=== PATIENT | female | born 1980 | race Caucasian/White ===

== ENCOUNTER 2019-11-30 21:15 | Inpatient (IN) | payer BC, OTHER ==
[2019-11-30] MEDS ORDERED: SODIUM CHLORIDE 1,000 ML IV STA (22:58)
[2019-11-30] MEDS ORDERED: morphine CARPU-JECT 4 MG/1 ML DISP.SYRIN IVPUSH ONE (22:58)
[2019-11-30] MEDS ORDERED: ONDANSETRON 4 MG/2 ML VIAL IVPB ONE (22:58)
--- NOTE | 2019-11-30 23:06 | PDOC ---
History of Present Illness - General Chief Complaint: Cold Symptoms Stated Complaint: ABD PAIN/VOMITING Time Seen by Provider: 11/30/19 22:28 History Source: Patient Exam Limitations: No Limitations - History of Present Illness Travel History: No Initial Comments: 11/30/19 23:02 HISTORY OF PRESENT ILLNESS: 39-year-old woman past medical history of uterine fibroids s/p remote hysterectomy presents emergency department for evaluation of epigastric pain over the past 24 hours after eating steak for dinner on 11/29. Patient reports the pain is been constant since that time but is unable to describe the pain. She reports the pain is "very bad." She reports feeling some nausea with occasional episodes of nonbilious nonbloody vomiting. Patient was seen by her primary doctor today who told her to drink Gatorade and she would improve. Patient reports her pain is unimproved despite increased fluid intake. She denies anybody who ate the steak feeling sick. Patient denies any alcohol intake. No recent travel or sick contacts. PAST MEDICAL HISTORY: See HPI SURGICAL HISTORY: See HPI ALLERGIES: No known drug allergies REVIEW OF SYSTEMS General/Constitutional: Denies fever or chills. Denies weakness, weight change. HEENT: Denies change in vision. Denies ear pain or discharge. Denies sore throat. Cardiovascular: Denies chest pain or shortness of breath. Respiratory: Denies cough, wheezing, or hemoptysis. Gastrointestinal: See HPI Genitourinary: Denies dysuria, frequency, or change in urination. Musculoskeletal: Denies joint or muscle swelling or pain. Denies neck or back pain. Skin and breasts: Denies rash or easy bruising. Neurologic: Denies headache, vertigo, loss of consciousness, or loss of sensation. Psychiatric: Denies depression or anxiety. Endocrine: Denies increased thirst. Denies abnormal weight change. Hematologic/Lymphatic: Denies anemia, easy bleeding, or history of blood clots. Allergic/Immunologic: Denies hives or skin allergy. Denies latex allergy. PHYSICAL EXAM General Appearance: Well-appearing, appropriately dressed. No apparent distress , no intoxication. Respiratory/Chest: Lungs CTAB. No shortness of breath, chest tenderness, respiratory distress, accessory muscle use. No crackles, rales, rhonchi, stridor , wheezing, dullness Cardiovascular: RRR. S1, S2. No JVD, murmur, bradycardia, tachycardia. Vascular Pulses: Dorsalis-Pedis (R): 2+, Dorsalis-Pedis (L): 2+ Gastrointestinal/Abdominal: Normal bowel sounds. Abdomen soft, non-distended. Right upper quadrant and epigastric tenderness present with guarding. Positive Johns's sign. No organomegaly, pulsatile mass, hernia, hepatomegaly, splenomegaly. Musculoskeletal/Extremities: Normal inspection. FROM of all extremities, normal capillary refill. Pelvis Stable. No CVA tenderness. No tenderness to extremities, pedal edema, swelling, erythema or deformity. 12/01/19 00:50 Past History - Past Medical History Allergies/Adverse Reactions: Allergies Allergy/AdvReac Type Severity Reaction Status Date / Time No Known Allergies Allergy Verified 02/07/15 12:47 Home Medications: Ambulatory Orders Amox-Tr/K Cl [Augmentin - 875Mg Tablet] 1 tab PO BID #8 tablet 12/04/19 Docusate Sodium [Colace -] 100 mg PO TID capsule 12/04/19 Ketorolac Tromethamine [Toradol] 10 mg PO Q6H #20 tablet 12/04/19 - Psycho Social/Smoking Cessation Hx Smoking History: Never smoked Have you smoked in the past 12 months: No Information on smoking cessation initiated: No Hx Alcohol Use: Yes Drug/Substance Use Hx: No Substance Use Type: None *Physical Exam - Vital Signs Last Vital Signs Temp Pulse Resp BP Pulse Ox 98.3 F 83 20 119/66 99 11/30/19 22:13 11/30/19 22:13 11/30/19 22:13 11/30/19 22:13 11/30/19 22:13 ED Treatment Course - LABORATORY CBC & Chemistry Diagram: 12/04/19 13:45 12/04/19 13:45 - RADIOLOGY Radiology Studies Ordered: Category Date Time Status GALLBLADDER US [US] Stat Ultrasound 11/30/19 22:59 Ordered Medical Decision Making - Medical Decision Making 11/30/19 23:06 A/P: 39-year-old woman with epigastric and right upper quadrant pain starting yesterday after eating dinner Epigastric and right upper quadrant tenderness present with guarding Remainder of abdominal exam is benign Lungs clear to auscultation bilaterally RRR. No murmur, rub or gallop present. Differential diagnosis includes but is not limited to-gastritis, gastroenteritis , pancreatitis, cholecystitis, choledocholithiasis, ACS, pneumonia Labs including lipase and cardiac profile Urinalysis Chest x-ray Gallbladder ultrasound Normal saline 1 L IV bolus Zofran 8 mg IV push Morphine 4 mg IV push Reassess 12/01/19 00:59 Ultrasound is read by imaging on-call: Gallbladder is full of sludge and probably small stones. Wall appears mildly thick. Consider cholecystitis. No biliary dilatation is seen. Liver appears heterogeneous. Right kidney shows no hydronephrosis. Portal vein shows unremarkable venous waveform with hepatopetal flow. Patient has positive Johns sign gallstones and thickened gallbladder wall high likelihood of cholecystitis. Admit the patient to [facility] for surgical consultation in the morning. Type and screen has been ordered Ceftriaxone 1 g IV ordered N.p.o. 12/01/19 01:09 Case has been discussed with Dr. Jones of the hospitalist service Who accepts patient for admission under Dr. Queen. Discharge - Discharge Information Problems reviewed: Yes Clinical Impression/Diagnosis: Cholecystitis, acute Condition: Good Disposition: HOME - Admission Yes - Follow up/Referral - Patient Discharge Instructions - Post Discharge Activity
[2019-11-30] MEDS ORDERED: ONDANSETRON 4 MG/2 ML VIAL ONE (23:19)
[2019-11-30] MEDS ORDERED: morphine SULFATE 4 MG/ML VIAL ONE (23:19)
[2019-11-30 23:41] LABS: BASO % 0.6 % (0-2.0); HEMATOCRIT 40.8 % (32.4-45.2); HEMOGLOBIN 13.6 GM/dL (10.7-15.3); LYMPH % 5.8 % (8-40); MCH 28.2 pg (25.7-33.7); MCHC 33.2 g/dl (32.0-36.0); MEAN CELL VOLUME 84.8 fl (80-96); MEAN PLT VOLUME 9.4 fl (7.5-11.1); MONO % 7.6 % (3.8-10.2); PLATELET COUNT 312 K/MM3 (134-434); RBC 4.81 M/mm3 (3.60-5.2); RDW 13.2 % (11.6-15.6); WHITE BLOOD COUNT 13.3 K/mm3 (4.0-10.0)
[2019-12-01 00:23] LABS: ALBUMIN 3.8 g/dl (3.4-5.0); ALK PHOS 80 U/L (45-117); ANION GAP 7 MMOL/L (8-16); BILIRUBIN,TOTAL 0.6 mg/dL (0.2-1); BLOOD UREA NITROGEN 8.6 mg/dL (7-18); CALCIUM 9.2 mg/dL (8.5-10.1); CHLORIDE 101 mmol/L (98-107); CO2 28 mmol/L (21-32); CREATININE 0.8 mg/dL (0.55-1.3); GLUCOSE,RANDOM 168 mg/dL (74-106); POTASSIUM 4.1 mmol/L (3.5-5.1); SGOT/AST 9 U/L (15-37); SGPT/ALT 16 U/L (13-61); SODIUM 135 mmol/L (136-145); TOT PROT 7.8 g/dl (6.4-8.2)
[2019-12-01] MEDS ORDERED: CEFTRIAXONE 1 GM in DEXTROSE 5%-WATER - 100 ML IVPB ONE (00:56)
[2019-12-01] MEDS ORDERED: SODIUM CHLORIDE 1,000 ML IV SCH (01:00)
[2019-12-01] MEDS ORDERED: morphine CARPU-JECT 4 MG/1 ML DISP.SYRIN IVPUSH ONE (01:04)
[2019-12-01] MEDS ORDERED: morphine SULFATE 4 MG/ML VIAL ONE ×2 (01:34→05:47)
--- NOTE | 2019-12-01 01:48 | HP ---
CHIEF COMPLAINT: Abdominal Pain PCP: [facility] HISTORY OF PRESENT ILLNESS: Patient is a 39 y/o F with no significant past medical history who presented to [facility] due to severe abdominal pain. Patient endorses that her pain commenced Wednesday evening while she was eating a steak. Approximately 20 minutes after eating her food, she began to experience her abdominal pain. Pain is constant, 10/10 in pain severity, and more prominent in her right upper quadrant. Patient states she has vomited over 10 times since the onset of her pain; vomitus is described as NBNB. Patient endorses she has never experienced this type of pain before. Patient did not take any OTC medications for her pain. morning, patient went to see her primary care doctor who advised her to drink Gatorade and sent her home. After pain did not remit, patient came to our emergency department. PastSurgHx: Hysterectomy FH- Father DM Social- Denies T/A/D NKDA ER course was notable for: (1) Abdominal ultrasound: Gallbladder is full of sludge and probably small stones. Wall appears thick. Consider cholecystitis. No billiary dilation seen. (2) 1 gm Ceftriaxone (3) HOME MEDICATIONS: Home Medications Medication Instructions Recorded Naproxen [Naprosyn -] 500 mg PO BID PRN #14 tablet 02/07/15 REVIEW OF SYSTEMS CONSTITUTIONAL: PRESENT: Fever HEENT: Absent: rhinorrhea, nasal congestion, throat pain, throat swelling, difficulty swallowing, mouth swelling, ear pain, eye pain, visual changes CARDIOVASCULAR: Absent: chest pain, syncope, palpitations, irregular heart rate, lightheadedness , peripheral edema RESPIRATORY: Absent: cough, shortness of breath, dyspnea with exertion, orthopnea, wheezing, stridor, hemoptysis GASTROINTESTINAL: PRESENT abdominal pain, nausea, vomiting GENITOURINARY: Absent: dysuria, frequency, urgency, hesitancy, hematuria, flank pain, genital pain MUSCULOSKELETAL: Absent: myalgia, arthralgia, joint swelling, back pain, neck pain SKIN: Absent: rash, itching, pallor HEMATOLOGIC/IMMUNOLOGIC: Absent: easy bleeding, easy bruising, lymphadenopathy, frequent infections ENDOCRINE: Absent: unexplained weight gain, unexplained weight loss, heat intolerance, cold intolerance NEUROLOGIC: Absent: headache, focal weakness or paresthesias, dizziness, unsteady gait, seizure, mental status changes, bladder or bowel incontinence PSYCHIATRIC: Absent: anxiety, depression, suicidal or homicidal ideation, hallucinations. PHYSICAL EXAMINATION Vital Signs - 24 hr 11/30/19 11/30/19 22:13 23:59 Temperature 98.3 F Pulse Rate 83 Pulse Rate [ 72 Apical] Respiratory 20 18 Rate Blood Pressure 119/66 Blood Pressure 123/78 [Left Arm] O2 Sat by Pulse 99 100 Oximetry (%) GENERAL: Atraumatic/Normocephlic HEAD: AT/NC EYES: EOMI Sclera Clear EARS, NOSE, THROAT: MMM NECK: Supple LUNGS: CTAB HEART: RRR S1S2 ABDOMEN: +++ Johns's sign MUSCULOSKELETAL: FROM LOWER EXTREMITIES: No significant edema NEUROLOGICAL: Cranial nerves II-XII intact. Normal speech. PSYCHIATRIC: Cooperative. Good eye contact. Appropriate mood and affect. SKIN: No rashes or lesions appreciated Laboratory Results - last 24 hr 11/30/19 11/30/19 11/30/19 23:34 23:34 23:34 WBC 13.3 H RBC 4.81 Hgb 13.6 Hct 40.8 MCV 84.8 MCH 28.2 MCHC 33.2 RDW 13.2 Plt Count 312 MPV 9.4 Absolute Neuts (auto) 11.4 H Neutrophils % 86.0 H Lymphocytes % 5.8 L Monocytes % 7.6 Eosinophils % 0.0 Basophils % 0.6 Nucleated RBC % 0 Sodium 135 L Potassium 4.1 Chloride 101 Carbon Dioxide 28 Anion Gap 7 L BUN 8.6 Creatinine 0.8 Est GFR (CKD-EPI)AfAm 106.13 Est GFR (CKD-EPI)NonAf 91.57 Random Glucose 168 H Calcium 9.2 Total Bilirubin 0.6 AST 9 L ALT 16 Alkaline Phosphatase 80 Creatine Kinase 102 Troponin I < 0.02 Total Protein 7.8 Albumin 3.8 Lipase 62 L ASSESSMENT/PLAN: Patient is a 39 y/o F with no significant past medical history who presented to [facility] due to severe abdominal pain. # Cholecystitis - Abdomen Ultrasound : Gallbladder is full of sludge and probably small stones. Wall appears thick. Consider Cholecystitis. No billiary dilation seen. - ++Johns's sign -Received 1 gm Ceftriaxone in Emergency Department -Surgery on board. Likely Cholecystectomy in am. -PTT/PT Type and screen -Morphine 4 mg Q4H PRN -Ofirmev PRN with associated Pain Scale -Zofran PRN for Nausea -EKG preoperatively -NPO #FEN -NS@125cc/hr -Monitor Electrolytes -NPO #DVT ppx: -SCDs #Dispo: -Med-Surg - Visit type - Emergency Visit Emergency Visit: Yes ED Registration Date: 12/01/19 Care time: The patient presented to the Emergency Department on the above date and was hospitalized for further evaluation of their emergent condition. - New Patient This patient is new to me today: Yes Date on this admission: 12/01/19 - Critical Care Critical Care patient: No ATTENDING PHYSICIAN STATEMENT I saw and evaluated the patient. I reviewed the resident's note and discussed the case with the resident. I agree with the resident's findings and plan as documented. SUBJECTIVE: OBJECTIVE: ASSESSMENT AND PLAN:
--- NOTE | 2019-12-01 02:23 | PN ---
Teaching Attending Note Name of Resident: Shabbir Jones ATTENDING PHYSICIAN STATEMENT I saw and evaluated the patient. I reviewed the resident's note and discussed the case with the resident. I agree with the resident's findings and plan as documented. SUBJECTIVE: 39-year-old woman w/ uterine fibroids s/p remote hysterectomy presents with epigastric pain over the past 24 hours after eating steak on 11/29/2019. Patient reports that the pain is been constant since that time associate with some nausea and nonbilious nonbloody vomiting. Patient seen at [facility] who discharged her, patient reports pain is unimproved despite increased fluid intake. OBJECTIVE: Last Vital Signs Temp Pulse Resp BP Pulse Ox 98.3 F 72 18 123/78 100 11/30/19 22:13 11/30/19 23:59 11/30/19 23:59 11/30/19 23:59 11/30/19 23:59 GENERAL: Well developed, well nourished. Awake and alert. No acute distress. HEENT: Normocephalic, atraumatic. PERRLA, EOMI. No conjunctival pallor. Sclera are non- icteric. Moist mucous membranes. Oropharynx is clear. NECK: Supple. Full ROM. No JVD. Carotid pulses 2+ and symmetric, without bruits. No thyromegaly. No lymphadenopathy. CARDIOVASCULAR: Regular rate and rhythm. No murmurs, rubs, or gallops. Distal pulses are 2+ and symmetric. PULMONARY: No evidence of respiratory distress. Lungs clear to auscultation bilaterally. No wheezing, rales or rhonchi. ABDOMINAL: Soft. Right upper quadrant tenderness, positive Johns sign Non-distended. No rebound or guarding. MUSCULOSKELETAL Normal range of motion at all joints. No bony deformities or tenderness. No CVA tenderness. EXTREMITIES: No cyanosis. No clubbing. No edema. No calf tenderness. SKIN: Warm and dry. Normal capillary refill. No rashes. No jaundice. PSYCHIATRIC: Cooperative. Good eye contact. Appropriate mood and affect. Abnormal Lab Results 11/30/19 11/30/19 11/30/19 23:34 23:34 23:34 WBC 13.3 H Absolute Neuts (auto) 11.4 H Neutrophils % 86.0 H Lymphocytes % 5.8 L Sodium 135 L Anion Gap 7 L Random Glucose 168 H AST 9 L Lipase 62 L Imaging studies reviewed ASSESSMENT AND PLAN: 39-year-old woman with acute cholecystitis, leukocytosis status post ceftriaxone in the ER. No signs of systemic infection at this time. Borderline hyponatremia. Admit to MedSurg PT/PTT/type and screen N.p.o. BGM's every 6 hours Pain control with morphine IV IV fluid hydration EKG preoperatively Zofran IV as needed if nausea or vomiting Urine test Surgery consultDrDeepika Oswald DVT prophylaxis with SCDs
[2019-12-01 02:28] LABS: EPI CELLS 28.6 /HPF (0-5/HPF); HYALINE CASTS 29 /lpf (0-8); URINE APPEARANCE CLOUDY; URINE BACTERIA 1304.1 /hpf (NEGATIVE); URINE BILIRUBIN NEGATIVE (NEGATIVE); URINE COLOR YELLOW; URINE GLUCOSE (UA) TRACE (NEGATIVE); URINE KETONE 3+ (NEGATIVE); URINE LEUK ESTERASE NEGATIVE (NEGATIVE); URINE NITRITE NEGATIVE (NEGATIVE); URINE PROTEIN 1+ (NEGATIVE); URINE UROBILINOGEN 0.2 mg/dL (0.2-1.0)
[2019-12-01] MEDS ORDERED: morphine CARPU-JECT 4 MG/1 ML DISP.SYRIN IVPUSH PRN ×2 (03:52→08:00)
[2019-12-01] MEDS ORDERED: ACETAMINOPHEN 1000 MG/100 ML VIAL (NON FORMULARY) IVPB PRN (03:53)
[2019-12-01 04:02] LABS: URINE RBC 10.5 /hpf (0-4); URINE WBC 12.1 /hpf (0-5)
[2019-12-01 06:43] LABS: BASO % 0.1 % (0-2.0); HEMATOCRIT 37.8 % (32.4-45.2); HEMOGLOBIN 12.7 GM/dL (10.7-15.3); LYMPH % 4.8 % (8-40); MCH 28.4 pg (25.7-33.7); MCHC 33.6 g/dl (32.0-36.0); MEAN CELL VOLUME 84.5 fl (80-96); MONO % 11.5 % (3.8-10.2); NEUT % 83.6 % (42.8-82.8); PLATELET COUNT 293 K/MM3 (134-434); RBC 4.48 M/mm3 (3.60-5.2); RDW 13.2 % (11.6-15.6); WHITE BLOOD COUNT 19.7 K/mm3 (4.0-10.0)
[2019-12-01 06:51] LABS: INR 1.3 (0.83-1.09); PROTHROMBIN TIME (PATIENT) 15.4 SEC (9.7-13.0)
[2019-12-01 06:53] LABS: ACTIVATED PTT 27.8 SECONDS (25.2-36.5)
[2019-12-01 07:09] LABS: ALBUMIN 3.1 g/dl (3.4-5.0); ALK PHOS 65 U/L (45-117); ANION GAP 7 MMOL/L (8-16); BILIRUBIN,TOTAL 0.5 mg/dL (0.2-1); BLOOD UREA NITROGEN 7.7 mg/dL (7-18); CALCIUM 8.1 mg/dL (8.5-10.1); CHLORIDE 105 mmol/L (98-107); CO2 25 mmol/L (21-32); CREATININE 0.7 mg/dL (0.55-1.3); GLUCOSE,RANDOM 145 mg/dL (74-106); MAGNESIUM 1.9 mg/dL (1.8-2.4); PHOSPHOROUS 2.5 mg/dL (2.5-4.9); POTASSIUM 3.6 mmol/L (3.5-5.1); SGOT/AST 15 U/L (15-37); SGPT/ALT 16 U/L (13-61); SODIUM 137 mmol/L (136-145); TOT PROT 6.4 g/dl (6.4-8.2)
[2019-12-01] MEDS ORDERED: morphine SULFATE 4 MG/ML VIAL IVPUSH PRN (08:00)
[2019-12-01] MEDS ORDERED: ACETAMINOPHEN INJECTION 100 ML IVPB ONE ×2 (09:02→16:42)
--- NOTE | 2019-12-01 09:08 | CONSULT ---
- Consultation REQUESTING PROVIDER: CONSULT REQUEST: We have been asked to surgically evaluate this patient for cholecystitis PCP:April Lucio NP HISTORY OF PRESENT ILLNESS: Patient is a 39 y/o F with no significant past medical history who presented to [facility] due to severe abdominal pain x 1 day. Patient states the pain started Wednesday evening approximately 20 minutes after eating her food, she began to experience her abdominal pain. Pain is constant, 10/10 in pain severity, and more prominent in her right upper quadrant. Patient states she has vomited yellow) over 10 times since the onset of her pain. Patient endorses she has never experienced this type of pain before. Patient did not take any OTC medications for her pain. morning, patient went to see her primary care doctor who advised her to drink Gatorade and sent her home. As the pain continued, she came to our emergency department. PastSurgHx: Hysterectomy FH- Father DM Social- Denies T/A/D NKDA HOME MEDICATIONS: Home Medications Medication Instructions Recorded Naproxen [Naprosyn -] 500 mg PO BID PRN #14 tablet 02/07/15 REVIEW OF SYSTEMS CONSTITUTIONAL: PRESENT: Fever HEENT: Absent: rhinorrhea, nasal congestion, throat pain, throat swelling, CARDIOVASCULAR: Absent: chest pain, syncope, s, peripheral edema RESPIRATORY: Absent: cough, shortness of breath, dyspnea with exertion, GASTROINTESTINAL: PRESENT abdominal pain, nausea, vomiting GENITOURINARY: Absent: dysuria, frequency, urgency, hesitancy, MUSCULOSKELETAL: Absent: myalgia, arthralgia, joint swelling, SKIN: Absent: rash, itching, pallor HEMATOLOGIC/IMMUNOLOGIC: Absent: easy bleeding, easy bruising, lymphadenopathy, frequent infections ENDOCRINE: Absent: unexplained weight gain, unexplained weight loss, heat intolerance, cold intolerance NEUROLOGIC: Absent: headache, focal weakness or paresthesias, dizziness, unsteady gait, PSYCHIATRIC: Absent: anxiety, depression, suicidal or homicidal ideation, hallucinations. PHYSICAL EXAMINATION Last Vital Signs Temp Pulse Resp BP Pulse Ox 98.3 F 80 18 118/61 96 11/30/19 22:13 12/01/19 05:32 12/01/19 08:41 12/01/19 05:32 12/01/19 05:32 GENERAL: A&Ox3, mild distress 2/2 pain HEAD: AT/NC EYES: Sclera Clear LUNGS: Unlabored resp on RA HEART: RRR S1S2 ABDOMEN:obese with no rashes or lesions. Diffusely TTP throughout with increase TTP over RUQ, no masses palpated, + guarding. MUSCULOSKELETAL: FROM LOWER EXTREMITIES: No significant edema NEUROLOGICAL: Cranial nerves II-XII intact. Normal speech. PSYCHIATRIC: Cooperative. Good eye contact. Appropriate mood and affect. SKIN: No rashes or lesions appreciated Lab Results WBC 19.7 K/mm3 (4.0-10.0) H 12/01/19 05:30 RBC 4.48 M/mm3 (3.60-5.2) 12/01/19 05:30 Hgb 12.7 GM/dL (10.7-15.3) 12/01/19 05:30 Hct 37.8 % (32.4-45.2) 12/01/19 05:30 MCV 84.5 fl (80-96) 12/01/19 05:30 MCHC 33.6 g/dl (32.0-36.0) 12/01/19 05:30 RDW 13.2 % (11.6-15.6) 12/01/19 05:30 Plt Count 293 K/MM3 (134-434) 12/01/19 05:30 Sodium 137 mmol/L (136-145) 12/01/19 05:30 Potassium 3.6 mmol/L (3.5-5.1) 12/01/19 05:30 Chloride 105 mmol/L (98-107) 12/01/19 05:30 Carbon Dioxide 25 mmol/L (21-32) 12/01/19 05:30 Anion Gap 7 MMOL/L (8-16) L 12/01/19 05:30 BUN 7.7 mg/dL (7-18) 12/01/19 05:30 Creatinine 0.7 mg/dL (0.55-1.3) 12/01/19 05:30 Random Glucose 145 mg/dL (74-106) H 12/01/19 05:30 Calcium 8.1 mg/dL (8.5-10.1) L 12/01/19 05:30 Blood Type O POSITIVE 12/01/19 06:30 Antibody Screen Negative 12/01/19 02:48 INR 1.30 (0.83-1.09) H 12/01/19 05:30 Abdominal ultrasound: Gallbladder is full of sludge and probably small stones. Wall appears thick. Consider cholecystitis. No billiary dilation seen. Problem List - Problems (1) Cholecystitis, acute Assessment/Plan: Acute cholecystitis, plan for lap andreas with Dr Oswald later this afternoon. -Continue NPO -Pain control -IV abx -medical optimization -GI and DVT prophylaxis Evaluation and plan discussed with Dr Oswald Code(s): K81.0 - ACUTE CHOLECYSTITIS
[2019-12-01] MEDS ORDERED: PIPERACILLIN/TAZOB 3.375 GM 3.375 GM in DEXTROSE 5%-WATER - 50 ML IVPB SCH ×3 (10:00→18:00)
--- NOTE | 2019-12-01 12:23 | EKG ---
Test Reason : Blood Pressure : / mmHG Vent. Rate : 073 BPM Atrial Rate : 073 BPM P-R Int : 156 ms QRS Dur : 080 ms QT Int : 414 ms P-R-T Axes : 058 028 040 degrees QTc Int : 456 ms NORMAL SINUS RHYTHM PROLONGED QT NO PREVIOUS ECGS AVAILABLE Confirmed by YANET SHIN MD ([id number]) on 12/01/2019 12:22:55 PM Referred By: Confirmed By:YANET SHIN MD
[2019-12-01 12:32] VITALS: BMI 33.0
--- NOTE | 2019-12-01 13:11 | CON.ID ---
Consult Consult Specialty:: infectious diseases Referred by:: Catie Reason for Consultation:: abd pain - History of Present Illness Chief Complaint: abd pain History of Present Illness: 39 y/o F with no significant past medical history who presented to [facility] due to severe abdominal pain. Patient endorses that her pain commenced Wednesday evening while she was eating a steak. Approximately 20 minutes after eating her food, she began to experience her abdominal pain. Pain is constant, 10/10 in pain severity, and more prominent in her right upper quadrant. Patient states she has vomited over 10 times since the onset of her pain; vomitus is described as NBNB. Patient endorses she has never experienced this type of pain before. Patient did not take any OTC medications for her pain. morning, patient went to see her primary care doctor who advised her to drink Gatorade and sent her home. After pain did not remit, patient came to our emergency department. patient was worked up and imaging studies were done and patient found to armando telles seen by the surgical team and plan to take the patient to the operating room currently pain is the main issues - History Source History Provided By: Patient Limitations to Obtaining History: No Limitations - Past Medical History ...: No - Alcohol/Substance Use Hx Alcohol Use: No - Smoking History Smoking history: Never smoked Have you smoked in the past 12 months: No Home Medications - Allergies Allergies/Adverse Reactions: Allergies Allergy/AdvReac Type Severity Reaction Status Date / Time No Known Allergies Allergy Verified 02/07/15 12:47 - Home Medications Home Medications: Ambulatory Orders Naproxen [Naprosyn -] 500 mg PO BID PRN #14 tablet 02/07/15 Review of Systems - Review of Systems Constitutional: reports: Other Eyes: reports: No Symptoms HENT: reports: No Symptoms Neck: reports: No Symptoms Cardiovascular: reports: No Symptoms Respiratory: reports: No Symptoms Gastrointestinal: reports: Abdominal Pain (ruq) Musculoskeletal: reports: No Symptoms Integumentary: reports: No Symptoms Neurological: reports: No Symptoms Endocrine: reports: No Symptoms Hematology/Lymphatic: reports: No Symptoms Psychiatric: reports: No Symptoms Physical Exam Vital Signs: Vital Signs Temperature 99.1 F 12/01/19 12:28 Pulse Rate 75 12/01/19 12:28 Respiratory Rate 20 12/01/19 12:33 Blood Pressure 135/83 12/01/19 12:28 O2 Sat by Pulse Oximetry (%) 97 12/01/19 12:33 Constitutional: Yes: Well Nourished, Calm, Moderate Distress, Obese Eyes: Yes: Conjunctiva Clear HENT: Yes: Atraumatic, Normocephalic Neck: Yes: Supple, Trachea Midline Cardiovascular: Yes: Regular Rate and Rhythm Respiratory: Yes: Regular, CTA Bilaterally Gastrointestinal: Yes: Tenderness (ruq), Other (absent bowel sounds) Musculoskeletal: Yes: WNL Extremities: Yes: WNL Neurological: Yes: Alert, Oriented Psychiatric: Yes: Alert, Oriented Labs: CBC, BMP 12/01/19 05:30 12/01/19 05:30 Imaging - Results Cat Scan: Report Reviewed, Image Reviewed Assessment/Plan 39 y/o F with no significant past medical history who presented with abd pain abd pain choleycystitis nausea vomiting plan zosyn for surgery pain mgmt rest as per the team npo
[2019-12-01] MEDS ORDERED: MIDAZOLAM HCL 2 MG/2 ML SINGLE DOSE VIAL ONE (13:18)
[2019-12-01] MEDS ORDERED: PROPOFOL 20 ML ONE (13:18)
[2019-12-01] MEDS ORDERED: fentaNYL CITRATE 250 MCG/5 ML VIAL ONE (13:18)
[2019-12-01] MEDS ORDERED: ROCURONIUM BROMIDE 50 MG/5 ML SYRINGE ONE (13:40)
[2019-12-01] MEDS ORDERED: NEOSTIGMINE METHYLSULFATE 0.5 MG/ML - 10 ML MDV ONE (15:35)
[2019-12-01] MEDS ORDERED: ONDANSETRON 4 MG/2 ML VIAL IVPUSH PRN ×2 (15:59→18:36)
--- NOTE | 2019-12-01 15:59 | OP ---
Operative Note - Note: Operative Date: 12/01/19 Pre-Operative Diagnosis: acute cholecystitis/cholelithiasis Operation: laproscopic cholecystectomy Findings: gangrenous cholecystitis/cholelithiasis Surgeon: Kali Oswald Furniture Assembler: Rufina Riley Anesthesiologist/[employer] CLAIM EXAMINER: Юлия Pa MD Anesthesia: General Specimens Removed: gallbladder and contents Estimated Blood Loss (mls): 75 Drains & Tubes with Location: 10 mm BUFFY
[2019-12-01] MEDS ORDERED: LACTATED RINGERS SOLUTION 1,000 ML IV SCH (16:00)
--- NOTE | 2019-12-01 16:15 | SURG ---
Surgery Manager Life Sciences Note Manager Life Sciences: Rufina Riley PA-C Date of Service: 12/01/19 Diagnosis: acute cholecystitis/cholelithiasis Procedure: laproscopic cholecystectomy I was present for the entirety of the operative procedure. For further detail, please refer to operative report. Visit type - Case Type Case Type: ED Admission - Emergency Emergency Visit: Yes ED Registration Date: 12/01/19 Care time: The patient presented to the Emergency Department on the above date and was hospitalized for further evaluation of their emergent condition. - New patient This patient is new to me today: Yes Date on this admission: 12/01/19
[2019-12-01] MEDS ORDERED: ACETAMINOPHEN 1000 MG/100 ML VIAL (NON FORMULARY) IVPB ONE (17:00)
[2019-12-01] MEDS ORDERED: PIPERACILLIN/TAZOBACTAM 3.375 GM VIAL IVPB ONE (18:00)
[2019-12-01] MEDS: ACETAMINOPHEN 1000 MG/100 ML VIAL (NON FORMULARY) IVPB SCH ×2 (18:25→23:45)
[2019-12-01] MEDS: PIPERACILLIN/TAZOB 3.375 GM 3.375 GM in DEXTROSE 5%-WATER - 50 ML IVPB SCH (18:56)
[2019-12-02] MEDS ORDERED: PIPERACILLIN/TAZOBACTAM 3.375 GM VIAL IVPB ONE ×3 (02:33→17:12)
[2019-12-02] MEDS ORDERED: DEXTROSE 5%-WATER - 50 ML IVPB ONE ×3 (02:33→17:12)
[2019-12-02] MEDS: LACTATED RINGERS SOLUTION 1,000 ML IV SCH ×3 (02:35→22:09)
[2019-12-02] MEDS: PIPERACILLIN/TAZOB 3.375 GM 3.375 GM in DEXTROSE 5%-WATER - 50 ML IVPB SCH ×3 (02:36→17:14)
[2019-12-02] MEDS: ACETAMINOPHEN 1000 MG/100 ML VIAL (NON FORMULARY) IVPB SCH (04:14)
[2019-12-02 08:24] LABS: BASO % 0.2 % (0-2.0); EOS % 0.1 % (0-4.5); HEMATOCRIT 38.7 % (32.4-45.2); LYMPH % 8.7 % (8-40); MCH 28.6 pg (25.7-33.7); MCHC 33.6 g/dl (32.0-36.0); MEAN CELL VOLUME 85.2 fl (80-96); MEAN PLT VOLUME 10.1 fl (7.5-11.1); MONO % 7.2 % (3.8-10.2); NEUT % 83.8 % (42.8-82.8); PLATELET COUNT 268 K/MM3 (134-434); RBC 4.54 M/mm3 (3.60-5.2); RDW 13.8 % (11.6-15.6); WHITE BLOOD COUNT 17.5 K/mm3 (4.0-10.0)
[2019-12-02 08:43] LABS: BLOOD UREA NITROGEN 9.5 mg/dL (7-18); CREATININE 0.6 mg/dL (0.55-1.3); POTASSIUM 3.6 mmol/L (3.5-5.1)
[2019-12-02 08:48] LABS: ALBUMIN 2.2 g/dl (3.4-5.0); BILIRUBIN,DIRECT 0.5 mg/dL (0.0-0.2); BILIRUBIN,TOTAL 1.1 mg/dL (0.2-1); TOT PROT 5.2 g/dl (6.4-8.2)
--- NOTE | 2019-12-02 09:54 | PN ---
Progress Note, Physician History of Present Illness: pot op pain feels better headache drain in place - Current Medication List Current Medications: Active Medications Lactated Ringer's (Lactated Ringers Solution) 1,000 mls @ 125 mls/hr IV ASDIR KAVITHA Last Admin: 12/02/19 02:35 Dose: 125 mls/hr Piperacillin Sod/Tazobactam (Sod 3.375 gm/ Dextrose) 50 mls @ 100 mls/hr IVPB Q8H-IV KAVITHA; Protocol Last Admin: 12/02/19 02:36 Dose: 100 mls/hr Morphine Sulfate (Morphine Sulfate) 4 mg IVPUSH Q4H PRN PRN Reason: PAIN LEVEL 7 - 10 Ondansetron HCl (Zofran Injection) 4 mg IVPUSH Q6H PRN PRN Reason: NAUSEA AND/OR VOMITING - Objective Vital Signs: Vital Signs Temperature 99.7 F H 12/02/19 06:00 Pulse Rate 112 H 12/02/19 06:00 Respiratory Rate 20 12/02/19 06:00 Blood Pressure 107/59 L 12/02/19 06:00 O2 Sat by Pulse Oximetry (%) 97 12/01/19 22:00 Constitutional: Yes: Calm, Mild Distress HENT: Yes: Atraumatic, Other (headache) Cardiovascular: Yes: Regular Rate and Rhythm Respiratory: Yes: Regular, CTA Bilaterally Gastrointestinal: Yes: Normal Bowel Sounds, Soft Genitourinary: Yes: Other (drain in place) Musculoskeletal: Yes: WNL Extremities: Yes: WNL Wound/Incision: Yes: Clean/Dry Psychiatric: Yes: Alert, Oriented Labs: CBC, BMP 12/02/19 07:20 12/02/19 07:20 INR, PTT INR 1.30 (0.83-1.09) H 12/01/19 05:30 Assessment/Plan 39 y/o F with no significant past medical history who presented with abd pain abd pain choleycystitis nausea vomiting plan continue zosyn hydration rest as per the team
--- NOTE | 2019-12-02 10:45 | PN ---
Progress Note (short form) - Note Progress Note: Attending Surgeon POD#1 s/p lap andreas Feeling diet but overall better since pre-op; voiding and OOB to bathroom VSS T max 100.8 abdo-soft; port site dressings c/d/i; BUFFY serosanguinous extrems-warm; no calf tenderness WBC 17.5 LFT's/bili noted IMP: doing well post op lap andreas for gangrenous cholecystitis PLAN: Advance diet to clear liquis; continue IVF/IVABS/drain and trend tempWBC/ LFT's; pulmonary toilet and OOB walking. Kali Oswald MD FACS
--- NOTE | 2019-12-02 12:53 | PN ---
Physical Exam: SUBJECTIVE: Patient seen and examined at the bedside. reports her pain is controlled. denies any malaise. OBJECTIVE: Patient is a 39 year old female with no significant past medical history who comes to the ED on 12/01/2019 with abdominal pain. She is now s/p acute cholecystitis/cholelithiasis and is s/p laproscopic cholecystectomy for gangrenous cholecystitis/cholelithiasis. She remains on Zosyn IV. Vital Signs Period Temp Pulse Resp BP Sys/Ríos Pulse Ox Last 24 Hr 97.5 F-100.8 F 71-114 14-21 107-130/58-83 96-100 GENERAL: The patient is awake, alert, and fully oriented, in no acute distress. HEAD: Normal with no signs of trauma. EYES: PERRL, extraocular movements intact, sclera anicteric, conjunctiva clear. No ptosis. ENT: Ears normal, nares patent, oropharynx clear without exudates, moist mucous membranes. NECK: Trachea midline, full range of motion, supple. LUNGS: Breath sounds equal, clear to auscultation bilaterally HEART: Regular rate and rhythm ABDOMEN: Soft, nontender, nondistended, normoactive bowel sounds EXTREMITIES: no edema. NEUROLOGICAL: Normal speech, gait not observed. PSYCH: Normal mood, normal affect. SKIN: Warm, dry, normal turgor, no rashes or lesions noted Laboratory Results - last 24 hr 12/01/19 12/01/19 12/02/19 05:30 05:30 07:20 WBC 17.5 H RBC 4.54 Hgb 13.0 Hct 38.7 MCV 85.2 MCH 28.6 MCHC 33.6 RDW 13.8 Plt Count 268 MPV 10.1 Absolute Neuts (auto) 14.7 H Neutrophils % 83.8 H Lymphocytes % 8.7 D Monocytes % 7.2 Eosinophils % 0.1 D Basophils % 0.2 Nucleated RBC % 0 Sodium Potassium Chloride Carbon Dioxide Anion Gap BUN Creatinine Est GFR (CKD-EPI)AfAm Est GFR (CKD-EPI)NonAf Random Glucose Hemoglobin A1c % 5.1 Calcium Total Bilirubin Direct Bilirubin AST ALT Alkaline Phosphatase Total Protein Albumin Beta HCG, Quant < 1.0 12/02/19 12/02/19 07:20 07:20 WBC RBC Hgb Hct MCV MCH MCHC RDW Plt Count MPV Absolute Neuts (auto) Neutrophils % Lymphocytes % Monocytes % Eosinophils % Basophils % Nucleated RBC % Sodium 140 Potassium 3.6 Chloride 108 H Carbon Dioxide 25 Anion Gap 8 BUN 9.5 Creatinine 0.6 Est GFR (CKD-EPI)AfAm 131.22 Est GFR (CKD-EPI)NonAf 113.22 Random Glucose 90 Hemoglobin A1c % Calcium 8.0 L Total Bilirubin 1.1 H Direct Bilirubin 0.5 H AST 66 H ALT 98 H Alkaline Phosphatase 70 Total Protein 5.2 L Albumin 2.2 L Beta HCG, Quant Active Medications Generic Name Dose Route Start Last Admin Trade Name Freq PRN Reason Stop Dose Admin Lactated Ringer's 1,000 mls @ 125 mls/hr 12/01/19 18:36 12/02/19 02:35 Lactated Ringers Solution IV 125 mls/hr ASDIR KAVITHA Administration Piperacillin Sod/Tazobactam 50 mls @ 100 mls/hr 12/01/19 19:00 12/02/19 10:48 Sod 3.375 gm/ Dextrose IVPB 100 mls/hr Q8H-IV KAVITHA Administration Protocol Morphine Sulfate 4 mg 12/01/19 18:36 Morphine Sulfate IVPUSH Q4H PRN PAIN LEVEL 7 - 10 Ondansetron HCl 4 mg 12/01/19 18:36 Zofran Injection IVPUSH Q6H PRN NAUSEA AND/OR VOMITING ASSESSMENT/PLAN: Problem List - Problems (1) Cholecystitis, acute Assessment/Plan: S/P lap andreas for gangrenous gall bladder on IV zosyn monitor pain, labs, vitals Dr. Mcelroy following post op care: incentive spirometer, pain management, early ambulation, vital signs monitoring surgery following Code(s): K81.0 - ACUTE CHOLECYSTITIS (2) Obesity (BMI 30.0-34.9) Assessment/Plan: weight loss encouraged Code(s): E66.9 - OBESITY, UNSPECIFIED (3) Knee pain, right Assessment/Plan: asymptomatic Code(s): M25.561 - PAIN IN RIGHT KNEE (4) Prophylactic measure Assessment/Plan: fen tolerating clears SCDs monitor electrolytes full code Code(s): Z29.9 - ENCOUNTER FOR PROPHYLACTIC MEASURES, UNSPECIFIED Visit type - Emergency Visit Emergency Visit: Yes ED Registration Date: 12/01/19 Care time: The patient presented to the Emergency Department on the above date and was hospitalized for further evaluation of their emergent condition. - New Patient This patient is new to me today: Yes Date on this admission: 12/02/19 - Critical Care Critical Care patient: No - Discharge Referral Referred to [facility] No
[2019-12-02] MEDS: DOCUSATE SODIUM 100 MG CAPSULE (FP) PO SCH ×2 (14:50→22:07)
[2019-12-02] MEDS: ACETAMINOPHEN 325 MG TABLET (FP) PO PRN (14:51)
[2019-12-02] MEDS: morphine SULFATE 4 MG/ML VIAL IVPUSH PRN (18:30)
--- NOTE | 2019-12-02 21:27 | PN ---
Progress Note (short form) - Note Progress Note: Anesthesia Post Op Note Pt s/p GA for lap andreas Pt awake alert denies n/v, ambulating well, no urinary retention reports good pain control VSS no apparent anesthesia complications Richard Hernandez.
[2019-12-03] MEDS ORDERED: PIPERACILLIN/TAZOBACTAM 3.375 GM VIAL IVPB ONE ×4 (01:27→20:52)
[2019-12-03] MEDS ORDERED: DEXTROSE 5%-WATER - 50 ML IVPB ONE ×4 (01:27→20:52)
[2019-12-03] MEDS: PIPERACILLIN/TAZOB 3.375 GM 3.375 GM in DEXTROSE 5%-WATER - 50 ML IVPB SCH ×3 (01:56→17:39)
[2019-12-03] MEDS: ACETAMINOPHEN 325 MG TABLET (FP) PO PRN ×2 (06:43→15:27)
[2019-12-03] MEDS: DOCUSATE SODIUM 100 MG CAPSULE (FP) PO SCH ×3 (06:43→21:13)
--- NOTE | 2019-12-03 11:22 | PN ---
Progress Note (short form) - Note Progress Note: Attending Surgeon POD#2 No c/o; tolerating clear liquids VSS AF T max 100.0F abdo-soft; port sites c/d/i; BUFFY serous; o/w negative. IMP: stable post op PLAN: advance diet/OOB/IVAB's/check WBC; BUFFY drain to be removed tomorrow. Kali Oswald MD FACS
[2019-12-03 13:21] LABS: BASO % 0.4 % (0-2.0); EOS % 0.2 % (0-4.5); HEMATOCRIT 33.3 % (32.4-45.2); HEMOGLOBIN 11.1 GM/dL (10.7-15.3); LYMPH % 11.9 % (8-40); MCH 28.3 pg (25.7-33.7); MCHC 33.2 g/dl (32.0-36.0); MEAN CELL VOLUME 85.4 fl (80-96); MEAN PLT VOLUME 9.4 fl (7.5-11.1); MONO % 8.1 % (3.8-10.2); NEUT % 79.4 % (42.8-82.8); PLATELET COUNT 249 K/MM3 (134-434); RBC 3.91 M/mm3 (3.60-5.2); RDW 13.6 % (11.6-15.6); WHITE BLOOD COUNT 11.8 K/mm3 (4.0-10.0)
[2019-12-03 13:31] LABS: ALBUMIN 2.1 g/dl (3.4-5.0); BILIRUBIN,TOTAL 0.5 mg/dL (0.2-1); BLOOD UREA NITROGEN 4.6 mg/dL (7-18); CALCIUM 8.1 mg/dL (8.5-10.1); CREATININE 0.7 mg/dL (0.55-1.3); MAGNESIUM 2.2 mg/dL (1.8-2.4); POTASSIUM 3.3 mmol/L (3.5-5.1); TOT PROT 5.1 g/dl (6.4-8.2)
--- NOTE | 2019-12-03 14:08 | EKG ---
Test Reason : Blood Pressure : / mmHG Vent. Rate : 088 BPM Atrial Rate : 088 BPM P-R Int : 158 ms QRS Dur : 086 ms QT Int : 380 ms P-R-T Axes : 044 -03 -04 degrees QTc Int : 459 ms NORMAL SINUS RHYTHM NORMAL ECG Confirmed by MD GRAEME, SETH ([id number]) on 12/03/2019 2:07:51 PM Referred By: Confirmed By:SETH BEDOLLA MD
--- NOTE | 2019-12-03 14:20 | PN ---
Physical Exam: SUBJECTIVE: Patient seen and examined at the bedside. in no acute distress. she feels better and having mild headache. OBJECTIVE: Patient is a 39 year old female with no significant past medical history who comes to the ED on 12/01/2019 with abdominal pain. She is now s/p acute cholecystitis/cholelithiasis and is s/p laproscopic cholecystectomy for gangrenous cholecystitis/cholelithiasis. She remains on Zosyn IV. tachycardia noted on vitals, ekg within normal limits. no chest pain, or shortness of breath. Vital Signs Period Temp Pulse Resp BP Sys/Ríos Pulse Ox Last 24 Hr 99.1 F-100 F 88-147 18-20 103-129/65-80 95-95 GENERAL: The patient is awake, alert, and fully oriented, in no acute distress. HEAD: Normal with no signs of trauma. EYES: PERRL, extraocular movements intact, sclera anicteric, conjunctiva clear. No ptosis. ENT: Ears normal, nares patent, oropharynx clear without exudates, moist mucous membranes. NECK: Trachea midline, full range of motion, supple. LUNGS: Breath sounds equal, clear to auscultation bilaterally HEART: Regular rate and rhythm ABDOMEN: Soft, nontender, nondistended, normoactive bowel sounds EXTREMITIES: no edema. NEUROLOGICAL: Normal speech, gait not observed. PSYCH: Normal mood, normal affect. SKIN: Warm, dry, normal turgor, no rashes or lesions noted Laboratory Results - last 24 hr 12/03/19 12/03/19 12:15 12:15 WBC 11.8 H RBC 3.91 Hgb 11.1 Hct 33.3 MCV 85.4 MCH 28.3 MCHC 33.2 RDW 13.6 Plt Count 249 MPV 9.4 Absolute Neuts (auto) 9.3 H Neutrophils % 79.4 Lymphocytes % 11.9 D Monocytes % 8.1 Eosinophils % 0.2 D Basophils % 0.4 Nucleated RBC % 0 Sodium 141 Potassium 3.3 L Chloride 106 Carbon Dioxide 31 Anion Gap 5 L BUN 4.6 L Creatinine 0.7 Est GFR (CKD-EPI)AfAm 124.73 Est GFR (CKD-EPI)NonAf 107.62 Random Glucose 134 H Calcium 8.1 L Magnesium 2.2 Total Bilirubin 0.5 AST 24 ALT 57 Alkaline Phosphatase 68 Total Protein 5.1 L Albumin 2.1 L Active Medications Generic Name Dose Route Start Last Admin Trade Name Freq PRN Reason Stop Dose Admin Acetaminophen 650 mg 12/02/19 13:06 12/03/19 06:43 Tylenol - PO 650 mg Q6H PRN Administration HEADACHE Docusate Sodium 100 mg 12/02/19 14:00 12/03/19 06:43 Colace - PO 100 mg TID KAVITHA Administration Piperacillin Sod/Tazobactam 50 mls @ 100 mls/hr 12/01/19 19:00 12/03/19 09:22 Sod 3.375 gm/ Dextrose IVPB 100 mls/hr Q8H-IV KAVITHA Administration Protocol Lactated Ringer's 1,000 mls @ 75 mls/hr 12/03/19 11:17 Lactated Ringers Solution IV ASDIR KAVITHA Morphine Sulfate 4 mg 12/01/19 18:36 12/02/19 18:30 Morphine Sulfate IVPUSH 4 mg Q4H PRN Administration PAIN LEVEL 7 - 10 Ondansetron HCl 4 mg 12/01/19 18:36 Zofran Injection IVPUSH Q6H PRN NAUSEA AND/OR VOMITING Potassium Chloride 40 meq 12/03/19 14:19 K-Dur - PO 12/03/19 14:20 ONCE ONE ASSESSMENT/PLAN: Problem List - Problems (1) Tachycardia Assessment/Plan: monitor, likely due to fevers, pain ekg within normal limits, no chest pain Code(s): R00.0 - TACHYCARDIA, UNSPECIFIED (2) Cholecystitis, acute Assessment/Plan: S/P lap andreas for gangrenous gall bladder on IV zosyn monitor pain, labs, vitals Dr. Mcelroy following post op care: incentive spirometer, pain management, early ambulation, vital signs monitoring surgery following Code(s): K81.0 - ACUTE CHOLECYSTITIS (3) Obesity (BMI 30.0-34.9) Assessment/Plan: weight loss encouraged Code(s): E66.9 - OBESITY, UNSPECIFIED (4) Knee pain, right Assessment/Plan: asymptomatic Code(s): M25.561 - PAIN IN RIGHT KNEE (5) Prophylactic measure Assessment/Plan: fen tolerating clears SCDs monitor electrolytes full code Code(s): Z29.9 - ENCOUNTER FOR PROPHYLACTIC MEASURES, UNSPECIFIED Visit type - Emergency Visit Emergency Visit: Yes ED Registration Date: 12/01/19 Care time: The patient presented to the Emergency Department on the above date and was hospitalized for further evaluation of their emergent condition. - New Patient This patient is new to me today: No - Critical Care Critical Care patient: No - Discharge Referral Referred to [facility] No
[2019-12-03] MEDS ORDERED: POTASSIUM CHLORIDE TABS 20 MEQ TABLET.ER (FP) PO ONE (14:45)
[2019-12-03] MEDS: LACTATED RINGERS SOLUTION 1,000 ML IV SCH ×2 (15:27→21:12)
--- NOTE | 2019-12-03 19:21 | OP ---
DATE OF OPERATION: 12/01/2019 PREOPERATIVE DIAGNOSIS: Acute cholecystitis and cholelithiasis. POSTOPERATIVE DIAGNOSIS: Gangrenous cholecystitis and cholelithiasis. PROCEDURE: Laparoscopic cholecystectomy. SURGEON: Kali Oswald MD [employer] OPERATOR: Rufina Riley PA-C ANESTHESIA: General. OPERATIVE FINDINGS: There was a massively distended gangrenous gallbladder almost filling the entire laparoscopic field. The rest of the findings were unremarkable. PROCEDURE: The patient was placed on the operating table in the supine position and after the induction of general anesthesia the patient's abdomen was prepped with ChloraPrep and draped in sterile fashion. A timeout was taken and pneumoperitoneum established above the umbilicus using a Veress needle. Once 15 mmHg of pressure were obtained, a 5-mm port was placed at the umbilicus and additional lateral 5-mm ports and a subxiphoid 12-mm port. Laparoscopy was carried out and the previously noted findings were observed. The gallbladder was decompressed using an aspiration needle and syringe to facilitate retraction at the fundus and neck after blunt dissection of adherent omentum was carried out. Dissection was then begun at the neck of the gallbladder where the peritoneum was opened medially and laterally using blunt dissection and electrocautery. The cystic duct was identified coursing from the neck of the gallbladder towards the common bile duct and it was dissected using blunt dissection proximally and distally for length. Similarly, the artery was identified and dissected proximally and distally for length. A critical view of safety was taken and then the duct and the artery were clipped twice proximally and twice distally with large hemoclips. The duct and artery were then serially divided using Endoshears. Hemostasis was checked for and noted to be good and then the gallbladder was removed from the liver bed in a retrograde fashion using electrocautery. Prior to removal from the edge of the liver, hemostasis in the liver bed was again checked for and noted to be good and then the gallbladder removed from the edge of the liver, placed in an EndoCatch , and brought out through the subxiphoid port. Pneumoperitoneum was reestablished. Copious irrigation was carried out with saline. Hemostasis was verified again. A 10-mm Thiago-Clemente drain was placed in the right hepatorenal fossa and brought out through 1 of the 5-mm ports and secured to the skin with 2-0 silk suture. All port sites were removed under laparoscopic vision without evidence of bleeding from the port sites. The port sites were infiltrated with 0.5% Marcaine and the skin edges reapproximated with 4-0 Biosyn in a subcuticular continuous fashion. Steri-Strips and Band-Aid dressings were placed. The drain was connected to bulb suction and then the patient aroused from general anesthesia and transferred to the postanesthesia care unit in stable condition, awake and alert. ESTIMATED BLOOD LOSS: 75 mL. REPLACEMENT: Crystalloid. DRAINS: One 10-mm Thiago-Clemente in the right hepatorenal fossa. SPECIMEN: Gallbladder and contents to Pathology. I, Kali Oswald, was physically present in the operating room from the time the patient was placed on the operating table until she was transferred to the postanesthesia care unit in [employer]. MD JELENA Pete/[id number] MTDD
[2019-12-04] MEDS: PIPERACILLIN/TAZOB 3.375 GM 3.375 GM in DEXTROSE 5%-WATER - 50 ML IVPB SCH ×3 (01:52→17:23)
[2019-12-04] MEDS: morphine SULFATE 4 MG/ML VIAL IVPUSH PRN (04:17)
[2019-12-04] MEDS: DOCUSATE SODIUM 100 MG CAPSULE (FP) PO SCH ×2 (07:16→14:58)
--- NOTE | 2019-12-04 08:31 | PN ---
Progress Note (short form) - Note Progress Note: POD#3 laparoscopic cholecystectomy patient seen and examined at bedside with no complaints. Patient has been OOB and voiding/moving her bowels. She is tolerating her diet and her pain is controlled. She denies any Cp, SOB, N/V, fever or chills. Vital Signs Temp 98.2 F 12/04/19 06:57 Pulse 80 12/04/19 06:57 Resp 20 12/04/19 06:57 BP 113/72 12/04/19 06:57 Pulse Ox 97 12/03/19 21:00 Intake & Output 12/03/19 12/03/19 12/04/19 11:59 23:59 11:59 Intake Total 1700 600 Output Total 25 25 15 Balance -25 1675 585 Weight 175 lb Intake: IV 300 600 Lactated Ringers Solution 300 600 1,000 ml @ 75 mls/hr IV ASDIR KAVITHA Rx#:[id number] Oral 1400 Output: Drainage 25 25 15 Right Lower Abdomen 25 25 15 Other: Voiding Method Toilet Toilet # Unmeasured Voids Void 1 Bowel Movement No Height 5 ft 1 in Body Mass Index (BMI) 33.0 CBC, BMP 12/03/19 12:15 12/03/19 12:15 PE: A&Ox3, NAD Unlabored resp on RA ABD.soft, ND with mild TTP across lower quadrants, incision c/d/i with surrounding tissue intact, no tracking erythema or evidence of d/c, drain removed with tip fully intact and no ostomy site clean and dry with no active drainage. B/L LE compartments soft, supple and non-tender Problem List - Problems (1) Cholecystitis, acute Assessment/Plan: POD #3 lap andreas doing well -OOB as tolerated -Encourage IS -d/c planning for home today Evaluation and plan discussed with Dr Oswald Code(s): K81.0 - ACUTE CHOLECYSTITIS
[2019-12-04] MEDS ORDERED: DEXTROSE 5%-WATER - 50 ML IVPB ONE (09:00)
[2019-12-04] MEDS ORDERED: PIPERACILLIN/TAZOBACTAM 3.375 GM VIAL IVPB ONE (09:00)
--- NOTE | 2019-12-04 10:26 | PN ---
Progress Note, Physician History of Present Illness: stable leaking around the drainage tube still with pain - Current Medication List Current Medications: Active Medications Acetaminophen (Tylenol -) 650 mg PO Q6H PRN PRN Reason: HEADACHE Last Admin: 12/03/19 15:27 Dose: 650 mg Docusate Sodium (Colace -) 100 mg PO TID [facility] Last Admin: 12/04/19 07:16 Dose: Not Given Piperacillin Sod/Tazobactam (Sod 3.375 gm/ Dextrose) 50 mls @ 100 mls/hr IVPB Q8H-IV KAVITHA; Protocol Last Admin: 12/04/19 01:52 Dose: 100 mls/hr Lactated Ringer's (Lactated Ringers Solution) 1,000 mls @ 75 mls/hr IV ASDIR KAVITHA Last Admin: 12/03/19 21:12 Dose: 75 mls/hr Morphine Sulfate (Morphine Sulfate) 4 mg IVPUSH Q4H PRN PRN Reason: PAIN LEVEL 7 - 10 Last Admin: 12/04/19 04:17 Dose: 4 mg Ondansetron HCl (Zofran Injection) 4 mg IVPUSH Q6H PRN PRN Reason: NAUSEA AND/OR VOMITING - Objective Vital Signs: Vital Signs Temperature 98.2 F 12/04/19 06:57 Pulse Rate 80 12/04/19 06:57 Respiratory Rate 20 12/04/19 06:57 Blood Pressure 113/72 12/04/19 06:57 O2 Sat by Pulse Oximetry (%) 97 12/03/19 21:00 Constitutional: Yes: Calm, Mild Distress Cardiovascular: Yes: S1, S2 Respiratory: Yes: Regular, CTA Bilaterally Gastrointestinal: Yes: Soft, Hypoactive Bowel Sounds, Other (drin in place) Musculoskeletal: Yes: WNL Extremities: Yes: WNL Neurological: Yes: Alert, Oriented Psychiatric: Yes: Alert, Oriented Labs: CBC, BMP 12/03/19 12:15 12/03/19 12:15 INR, PTT INR 1.30 (0.83-1.09) H 12/01/19 05:30 Assessment/Plan 39 y/o F with no significant past medical history who presented with abd pain abd pain choleycystitis nausea vomiting plan continue zosyn hydration rest as per the team await for starting diet monitor the leak
--- NOTE | 2019-12-04 10:27 | PN ---
Progress Note, Physician History of Present Illness: stable no issues drain removed tolerating diet - Current Medication List Current Medications: Active Medications Acetaminophen (Tylenol -) 650 mg PO Q6H PRN PRN Reason: HEADACHE Last Admin: 12/03/19 15:27 Dose: 650 mg Docusate Sodium (Colace -) 100 mg PO TID [facility] Last Admin: 12/04/19 07:16 Dose: Not Given Piperacillin Sod/Tazobactam (Sod 3.375 gm/ Dextrose) 50 mls @ 100 mls/hr IVPB Q8H-IV KAVITHA; Protocol Last Admin: 12/04/19 10:25 Dose: 100 mls/hr Lactated Ringer's (Lactated Ringers Solution) 1,000 mls @ 75 mls/hr IV ASDIR KAVITHA Last Admin: 12/03/19 21:12 Dose: 75 mls/hr Morphine Sulfate (Morphine Sulfate) 4 mg IVPUSH Q4H PRN PRN Reason: PAIN LEVEL 7 - 10 Last Admin: 12/04/19 04:17 Dose: 4 mg Ondansetron HCl (Zofran Injection) 4 mg IVPUSH Q6H PRN PRN Reason: NAUSEA AND/OR VOMITING - Objective Vital Signs: Vital Signs Temperature 98.2 F 12/04/19 06:57 Pulse Rate 80 12/04/19 06:57 Respiratory Rate 20 12/04/19 06:57 Blood Pressure 113/72 12/04/19 06:57 O2 Sat by Pulse Oximetry (%) 97 12/03/19 21:00 Constitutional: Yes: No Distress, Calm Cardiovascular: Yes: S1, S2 Respiratory: Yes: Regular, CTA Bilaterally Gastrointestinal: Yes: Normal Bowel Sounds, Soft Musculoskeletal: Yes: WNL Extremities: Yes: WNL Wound/Incision: Yes: Clean/Dry Neurological: Yes: Alert, Oriented Psychiatric: Yes: Alert, Oriented Labs: CBC, BMP 12/03/19 12:15 12/03/19 12:15 INR, PTT INR 1.30 (0.83-1.09) H 12/01/19 05:30 Assessment/Plan 39 y/o F with no significant past medical history who presented with abd pain abd pain choleycystitis nausea vomiting plan can change to augmentin to be given for 4 more days rest as per the team and surgery
--- NOTE | 2019-12-04 13:06 | DS ---
Physical Exam: SUBJECTIVE: Patient seen and examined at the bedside. for discharge home today. feels well, tolerating diet, having minimal pain on surgical site but tolerable. OBJECTIVE: Patient is a 39 year old female with no significant past medical history who comes to the ED on 12/01/2019 with abdominal pain. She is now s/p acute cholecystitis/cholelithiasis and is s/p laproscopic cholecystectomy for gangrenous cholecystitis/cholelithiasis. During hospitalization was treated with IV Zosyn and will be transitioned to Augmentin 875mg BID x 4 more days. She is to follow up with Dr. Oswald as an outpatient for post surgical evaluation. Vital Signs Period Temp Pulse Resp BP Sys/Ríos Pulse Ox Last 24 Hr 98.2 F-99.3 F 75-95 15-20 108-119/60-73 97 PHYSICAL EXAM GENERAL: The patient is awake, alert, and fully oriented, in no acute distress. HEAD: Normal with no signs of trauma. EYES: PERRL, extraocular movements intact, sclera anicteric, conjunctiva clear. ENT: Ears normal, nares patent, oropharynx clear without exudates, moist mucous membranes. NECK: Trachea midline, full range of motion, supple. LUNGS: Breath sounds equal, clear to auscultation bilaterally, no wheezes, no crackles, no accessory muscle use. HEART: Regular rate and rhythm, S1, S2 without murmur, rub or gallop. ABDOMEN: Soft, nontender, nondistended, normoactive bowel sounds, small dressing to right side abdomen. miriam drain removed today. EXTREMITIES: 2+ pulses, warm, well-perfused, no edema. NEUROLOGICAL: Cranial nerves II through XII grossly intact. Normal speech, gait not observed. LABS Laboratory Results - last 24 hr 12/03/19 12/03/19 12:15 12:15 WBC 11.8 H RBC 3.91 Hgb 11.1 Hct 33.3 MCV 85.4 MCH 28.3 MCHC 33.2 RDW 13.6 Plt Count 249 MPV 9.4 Absolute Neuts (auto) 9.3 H Neutrophils % 79.4 Lymphocytes % 11.9 D Monocytes % 8.1 Eosinophils % 0.2 D Basophils % 0.4 Nucleated RBC % 0 Sodium 141 Potassium 3.3 L Chloride 106 Carbon Dioxide 31 Anion Gap 5 L BUN 4.6 L Creatinine 0.7 Est GFR (CKD-EPI)AfAm 124.73 Est GFR (CKD-EPI)NonAf 107.62 Random Glucose 134 H Calcium 8.1 L Magnesium 2.2 Total Bilirubin 0.5 AST 24 ALT 57 Alkaline Phosphatase 68 Total Protein 5.1 L Albumin 2.1 L HOSPITAL COURSE: Date of Admission:12/01/19 Date of Discharge: 12/04/19 Minutes to complete discharge: 45 Discharge Summary Problems reviewed: Yes Reason For Visit: ACUTE CHOLECYSTITIS Current Active Problems Cholecystitis, acute (Acute) Obesity (BMI 30.0-34.9) (Acute) Prophylactic measure (Acute) Tachycardia (Acute) Condition: Good - Instructions Diet, Activity, Other Instructions: Dr. Oswald Discharge Instructions Dear MARKIE MCWILLIAMS, Post Operative Instructions Physical activity Resume your normal everyday activity as tolerated no heavy lifting or exercise until seen by your surgeon. You may walk unlimited amounts of and climb stairs. You may resume driving the car when you feel safe and comfortable behind the wheel. Wound care If you have a bandage, leave it on, and keep dry for 48 - 72 hours. After that time discard the outer bandage. If there are tapes on the skin under the outer bandage, leave them in place. They will peel off in the next 7 to 10 days. Do Not peel them off. You may shower 2 days after surgery. If there are tapes present on the skin, they can get wet. Diet There are no dietary restrictions. Eat healthy, high-fiber foods. Drink 6 to 8 glasses of liquid each day. This will assist in keeping your bowels are regular. Pain management You may take Tylenol or acetaminophen or Ibuprofen (for example, Motrin, Advil etc.) Any pain prescription medication ordered should be taken as prescribed for moderate to severe pain. Call Dr. Oswald for any of the following: Severe pain not relieved by medication Fever of 101 or higher Excessive bleeding or drainage on dressing Inability to urinate Call the office at [phone] for a post operative appointment in 7 - 10 days. Antibiotics: Augmentin 875mg TWICE per day for 4 more days. Referrals: ON STAFF,NOT [Primary Care Provider] - Disposition: HOME - Home Medications Comprehensive Discharge Medication List: Ambulatory Orders Amox-Tr/K Cl [Augmentin - 875Mg Tablet] 1 tab PO BID #8 tablet 12/04/19 Docusate Sodium [Colace -] 100 mg PO TID capsule 12/04/19 Ketorolac Tromethamine [Toradol] 10 mg PO Q6H #20 tablet 12/04/19 Problem List - Problems (1) Tachycardia Assessment/Plan: resolved Code(s): R00.0 - TACHYCARDIA, UNSPECIFIED (2) Cholecystitis, acute Assessment/Plan: S/P lap andreas for gangrenous gall bladder will be transitioned to oral antibiotics today for a total of 4 days. Code(s): K81.0 - ACUTE CHOLECYSTITIS (3) Obesity (BMI 30.0-34.9) Assessment/Plan: weight loss encouraged Code(s): E66.9 - OBESITY, UNSPECIFIED (4) Knee pain, right Assessment/Plan: asymptomatic Code(s): M25.561 - PAIN IN RIGHT KNEE (5) Prophylactic measure Assessment/Plan: discharge home Code(s): Z29.9 - ENCOUNTER FOR PROPHYLACTIC MEASURES, UNSPECIFIED This patient is new to me today: No Emergency Visit: Yes ED Registration Date: 12/01/19 Care time: The patient presented to the Emergency Department on the above date and was hospitalized for further evaluation of their emergent condition. Critical Care patient: No - Discharge Referral Referred to [facility] No
[2019-12-04 14:11] LABS: EOS % 1.5 % (0-4.5); HEMATOCRIT 33.7 % (32.4-45.2); HEMOGLOBIN 11.1 GM/dL (10.7-15.3); LYMPH % 20.8 % (8-40); MCHC 32.9 g/dl (32.0-36.0); MEAN PLT VOLUME 8.8 fl (7.5-11.1); MONO % 8.6 % (3.8-10.2); NEUT % 68.1 % (42.8-82.8); PLATELET COUNT 322 K/MM3 (134-434); RBC 3.97 M/mm3 (3.60-5.2); RDW 13.3 % (11.6-15.6)
[2019-12-04 14:32] LABS: ALBUMIN 2.2 g/dl (3.4-5.0); BILIRUBIN,TOTAL 0.3 mg/dL (0.2-1); BLOOD UREA NITROGEN 5.6 mg/dL (7-18); CALCIUM 7.9 mg/dL (8.5-10.1); CREATININE 0.7 mg/dL (0.55-1.3); MAGNESIUM 2.1 mg/dL (1.8-2.4); POTASSIUM 3.4 mmol/L (3.5-5.1); TOT PROT 5.7 g/dl (6.4-8.2)
[2019-12-04 14:43] VITALS: BP 109/69; PULSE 84; TEMP 98.7
[2019-12-04] MEDS: LACTATED RINGERS SOLUTION 1,000 ML IV SCH (14:58)
[2019-12-04] MEDS ORDERED: POTASSIUM CHLORIDE TABS 20 MEQ TABLET.ER (FP) PO ONE (15:15)
--- NOTE | 2019-12-05 14:43 | PATH ---
Surgical Pathology Report Patient Name: MARKIE MCWILLIAMS Med. Rec. #: [id number] /Age/Gender: 1980 (Age: 39) / F Account: [id number] Location: [facility] MED/SURG Taken: 12/01/2019 Received: 12/04/2019 Reported: 12/05/2019 Physicians: MD April PeresTomás FDeepikaNDeepikaPDeepika Specimen(s) Received GALLBLADDER Clinical History Acute cholecystitis Final Diagnosis GALLBLADDER, CHOLECYSTECTOMY: ACUTE CHOLECYSTITIS. CHOLELITHIASIS. Electronically Signed Adan Velazquez M.D. Gross Description Received in formalin, labeled "gallbladder," is an 11.0 x 5.5 x 4.5 cm. gallbladder with a 0.2 cm. in length portion of cystic duct attached. The outer surface is tee green and necrotic with multifocal defects. The lumen contains green bile as well as abundant yellow, irregular choleliths ranging from 0.5-0.9 cm in greatest dimension. The mucosa is dark green and velvety. The wall of the gallbladder averages 0.5 cm. in thickness. Tree Surgeon sections are submitted in one cassette. /12/04/2019 [facility]12/04/2019
== END 2019-12-04 17:39 | disposition home or self-care (01) | DRG 419 ==
LOC: SUPCPDRO 21:15 → JER 21:15 → JERBED 12-01 01:10 → J8W 12-01 10:45
PROVIDERS: ADMIT Internal Medicine; ATTEND Nurse Practitioner Family
PROC: 0FT44ZZ Resection of Gallbladder, Percutaneous Endoscopic Approach (ICD-10-PCS; principal; 2019-12-01 14:00)
DX: K80.00 Calculus of gallbladder with acute cholecystitis without obstruction (principal); R00.0 Tachycardia, unspecified; E66.9 Obesity, unspecified; Z68.33 Body mass index [BMI] 33.0-33.9, adult; R10.11 Right upper quadrant pain; R11.2 Nausea with vomiting, unspecified; M25.561 Pain in right knee; D72.829 Elevated white blood cell count, unspecified
CPT/HCPCS: 36415; 76705-TC; 80048; 80053; 80076; 81003; 82550; 83036; 83690; 83735; 84100; 84484; 84702; 84703; 85025; 85610; 85730; 86850; 86900; 86901; 87040; 87086; 88304-TC; 93005; 93010; 94760; 97116-GP; 99284-25; J0131; J7030

== ENCOUNTER → 2024-01-18 | Day surgery (SDC) | payer OTHER | END | disposition home or self-care (01) | LOC: JRADIR 08:46 | PROVIDERS: ATTEND Internal Medicine Endocrinology, Diabetes & Metabolism | PROC: 0G9G3ZX Drainage of Left Thyroid Gland Lobe, Percutaneous Approach, Diagnostic (ICD-10-PCS; principal; 2024-01-18) | DX: E04.1 Nontoxic single thyroid nodule (principal) | CPT/HCPCS: 10005; 76942; 88173; 88305-TC ==